=== PATIENT | male | born 1970 | race Caucasian/White ===

== ENCOUNTER 2021-02-02 06:00 | Day surgery (SDC) | payer MEDICARE, OTHER ==
[2021-02-01 09:55] VITALS: BMI 34.2
[2021-02-02] MEDS ORDERED: Levofloxacin 500 mg/D5W 100 ml Premix Bag ONE (06:48)
[2021-02-02] MEDS ORDERED: Fentanyl 100 MCG/2 ML VIAL ONE ×2 (06:56→08:42)
[2021-02-02] MEDS ORDERED: B & O ONE (07:24)
[2021-02-02] MEDS ORDERED: Glycopyrrolate 0.2 MG/ML 5 ML SYRINGE ONE (07:33)
[2021-02-02] MEDS ORDERED: Lidocaine 1% PF 5 ML VIAL ONE (07:33)
[2021-02-02] MEDS ORDERED: ePHEDrine 50 MG/ML VIAL ONE (07:33)
[2021-02-02] MEDS ORDERED: Ondansetron PF 4 MG/2 ML Vial ONE (07:33)
[2021-02-02] MEDS ORDERED: PROPOFOL 200 MG/20 ML VIAL ONE (07:33)
[2021-02-02] MEDS ORDERED: HYDROcodone/Acetaminophen 5/325 mg Tablet ONE (09:59)
== END 2021-02-02 10:25 | disposition home or self-care (01) ==
LOC: SDC 06:00
PROVIDERS: ATTEND Urology
PROC: 0VT08ZZ Resection of Prostate, Via Natural or Artificial Opening Endoscopic (ICD-10-PCS; principal; 2021-02-02)
DX: N40.1 Benign prostatic hyperplasia with lower urinary tract symptoms (principal); N13.8 Other obstructive and reflux uropathy; M54.9 Dorsalgia, unspecified; G47.33 Obstructive sleep apnea (adult) (pediatric); Z79.899 Other long term (current) drug therapy; Z91.013 Allergy to seafood
CPT/HCPCS: J1956; J2405; J2704; J3010; J3490

== ENCOUNTER 2022-08-07 08:06 | Outpatient (CLI) | payer OTHER | END 2022-08-07 08:07 | disposition home or self-care (01) | LOC: SCSMRI 08:06 | PROVIDERS: ATTEND Nurse Practitioner Family | DX: M47.26 Other spondylosis with radiculopathy, lumbar region (principal); M51.16 Intervertebral disc disorders with radiculopathy, lumbar region | CPT/HCPCS: 72120; 72148 ==

== ENCOUNTER 2023-06-04 11:16 | Outpatient (CLI) | payer MEDICARE, OTHER ==
[2023-06-04 13:05] LABS: Hematocrit 40.6 % (38.8-50.0); Hemoglobin 14.3 g/dL (13.5-17.5); Mean Corpuscular HGB CONC 35.2 g/dL (32.0-36.0); Mean Corpuscular Volume 93.8 fl (81.2-95.1); Mean Platelet Volume 9.7 fl (7.4-10.4); Platelet Count 194 10x3/uL (150-450); RBC Distribution Width 12.6 % (11.5-14.5); Red Blood Cell (RBC) Count 4.33 10x6/uL (4.32-5.72); White Blood Cell (WBC) Count 5.5 10x3/uL (3.5-10.5)
[2023-06-04 13:48] LABS: PTT 33.8 sec (22.0-33.0); Prothrombin Time 10.6 sec (9.5-12.1)
[2023-06-04 14:27] LABS: Anion Gap 11 mmol/L (10-20); BUN (Urea Nitrogen) 20 mg/dL (8.4-25.7); Calc. Creatinine Clearance 0 mL/min (70-130); Calcium 9.3 mg/dL (7.8-10.44); Carbon Dioxide 23 mmol/L (22-29); Chloride 109 mmol/L (98-107); Estimated GFR 75; Glucose 94 mg/dL (70-105); Potassium 4.3 mmol/L (3.5-5.1); Sodium 139 mmol/L (136-145)
== END 2023-06-04 11:17 | disposition home or self-care (01) ==
LOC: LABBT 11:16
PROVIDERS: ATTEND Surgery
DX: Z01.818 Encounter for other preprocedural examination (principal); M48.061 Spinal stenosis, lumbar region without neurogenic claudication; M51.16 Intervertebral disc disorders with radiculopathy, lumbar region
CPT/HCPCS: 80048; 85027; 85610; 85730; 93005; 93010

== ENCOUNTER 2023-06-14 06:17 | Observation (INO) | payer MEDICARE, OTHER ==
[2023-06-04 11:59] VITALS: BMI 33.6
[2023-06-14] MEDS ORDERED: Vancomycin 1 GM VIAL ONE (06:42)
[2023-06-14] MEDS ORDERED: Thrombin 5000 UNITS/5 ML VIAL ONE (06:43)
[2023-06-14] MEDS ORDERED: PROPOFOL 20 ML ONE (06:58)
[2023-06-14] MEDS ORDERED: Fentanyl 250 MCG/5 ML VIAL ONE (06:58)
[2023-06-14] MEDS ORDERED: Rocuronium Bromide 10 MG/ML (10ML VIAL) ONE ×2 (07:01→07:44)
[2023-06-14] MEDS ORDERED: Lidocaine 1% PF 5 ML VIAL ONE ×3 (07:01→08:37)
[2023-06-14] MEDS ORDERED: CEFAZOLIN 2 GM VIAL ONE (07:26)
[2023-06-14] MEDS ORDERED: Sodium Chloride 0.9% 100 ML ONE (07:26)
[2023-06-14] MEDS ORDERED: PHENYLEPHRINE-NS 100 MCG/ML 10 ML SYRINGE ONE ×2 (07:44→09:04)
[2023-06-14] MEDS ORDERED: Dexamethasone 20 MG/5 ML VIAL ONE ×2 (07:44→08:37)
[2023-06-14] MEDS ORDERED: Ondansetron PF 4 MG/2 ML Vial ONE ×2 (07:44→08:43)
[2023-06-14] MEDS ORDERED: Glycopyrrolate 0.2 MG/ML 5 ML SYRINGE ONE ×2 (07:44→10:08)
[2023-06-14] MEDS ORDERED: NEOSTIGMINE 3 MG/3 ML SYR 3 MG/3 ML SYRINGE ONE ×2 (07:44→10:08)
[2023-06-14] MEDS ORDERED: Ketorolac Tromethamine 30 MG/ML VIAL ONE ×2 (07:44→08:43)
[2023-06-14] MEDS ORDERED: Ondansetron PF 4 MG/2 ML Vial IVP PRN (10:37)
[2023-06-14] MEDS ORDERED: diphenhydrAMINE 25 MG CAP PO PRN (10:37)
[2023-06-14] MEDS ORDERED: Ketorolac Tromethamine 30 MG/ML VIAL IVP PRN (10:37)
[2023-06-14] MEDS ORDERED: Milk Of Magnesia 30 ML UDCUP PO PRN (10:37)
[2023-06-14] MEDS ORDERED: Morphine 2 MG/ML VIAL SLOW IVP PRN (10:37)
[2023-06-14] MEDS ORDERED: HYDROcodone/Acetaminophen 7.5/325 mg Tablet PO PRN (10:37)
[2023-06-14] MEDS ORDERED: Acetaminophen 325 MG TAB PO PRN (10:37)
[2023-06-14] MEDS ORDERED: Acetaminophen/Codeine 30-300mg Tablet PO PRN (10:37)
[2023-06-14] MEDS ORDERED: tiZANidine HCl 4 MG TAB PO PRN (10:39)
[2023-06-14] MEDS ORDERED: hydrALAZINE 20 MG/ML VIAL SLOW IVP PRN (10:40)
[2023-06-14] MEDS ORDERED: Lorazepam 2 MG/ML VIAL SLOW IVP PRN (10:40)
[2023-06-14] MEDS ORDERED: Morphine Sulfate 2 MG/ML SYRINGE SLOW IVP PRN (10:49)
[2023-06-14] MEDS ORDERED: Ondansetron HCl/PF 4 MG/2 ML Vial IVP PRN (10:49)
[2023-06-14] MEDS ORDERED: HYDROmorphone 2 MG/ML VIAL SLOW IVP PRN (10:49)
[2023-06-14] MEDS ORDERED: PACU-Morphine 4MG/ML VIAL SLOW IVP PRN (10:49)
[2023-06-14] MEDS ORDERED: Promethazine HCl 25 MG/ML VIAL IM PRN (10:49)
[2023-06-14] MEDS ORDERED: fentaNYL PF 100 MCG/2 ML SYRINGE ONE (10:52)
[2023-06-14] MEDS: Sodium Chloride 0.9% 1,000 ML IV SCH (13:24)
[2023-06-14] MEDS ORDERED: Promethazine HCl 12.5 MG in Sodium Chloride 0.9% 50 ML IVPB PRN (14:04)
[2023-06-14] MEDS ORDERED: Promethazine 25 MG TAB PO PRN (14:56)
[2023-06-14] MEDS ORDERED: Scopolamine 1 mg/72 hour Patch TD SCH (15:00)
[2023-06-14] MEDS: CEFAZOLIN 2 GM in Sodium Chloride 0.9% 100 ML IVPB SCH (15:45)
[2023-06-14] MEDS ORDERED: Baclofen 10 MG TAB PO SCH (21:00)
[2023-06-14] MEDS ORDERED: Losartan 25 MG TAB PO SCH (21:00)
[2023-06-14] MEDS ORDERED: Rosuvastatin 20 MG TAB PO SCH (21:00)
[2023-06-14] MEDS ORDERED: Topiramate 25 MG TAB PO SCH (21:00)
[2023-06-14] MEDS ORDERED: DULoxetine 30 MG CAP PO SCH (21:00)
[2023-06-15] MEDS: CEFAZOLIN 2 GM in Sodium Chloride 0.9% 100 ML IVPB SCH (00:08)
[2023-06-15] MEDS: Diazepam 5 MG TAB PO PRN ×2 (00:10→10:16)
[2023-06-15] MEDS: Sodium Chloride 0.9% 1,000 ML IV SCH (02:05)
[2023-06-15 12:40] VITALS: BP 103/66; TEMP 98.7
== END 2023-06-15 14:03 | disposition home or self-care (01) ==
LOC: SDC 06:17 → SURG A 10:44
PROVIDERS: ADMIT Surgery; ATTEND Surgery
PROC: 01NB4ZZ Release Lumbar Nerve, Percutaneous Endoscopic Approach (ICD-10-PCS; principal; 2023-06-14)
PROC: 0SB24ZZ Excision of Lumbar Vertebral Disc, Percutaneous Endoscopic Approach (ICD-10-PCS; 2023-06-14)
DX: M48.061 Spinal stenosis, lumbar region without neurogenic claudication (principal); M51.26 Other intervertebral disc displacement, lumbar region; M54.16 Radiculopathy, lumbar region; I10 Essential (primary) hypertension; E78.5 Hyperlipidemia, unspecified; M54.9 Dorsalgia, unspecified; G89.29 Other chronic pain; F17.290 Nicotine dependence, other tobacco product, uncomplicated; F10.90 Alcohol use, unspecified, uncomplicated
CPT/HCPCS: J1100; J1885; J2405; J2704; J3010; J3370; J3490; J7050